=== PATIENT | male | born 1960 | race Caucasian/White ===

== ENCOUNTER 2016-07-15 11:51 | Emergency (ER) | payer OTHER ==
[2016-07-15] MEDS ORDERED: Lidocaine 2% VISCOUS* 15 ML UDC ONE (13:22)
--- NOTE | 2016-07-15 14:06 | UC ---
Francy Addison Salem, scribed for Hector Ferguson MD on 07/15/16 at 1312 . Complaint Male HPI - HPI Summary HPI Summary: In Room note: Patient is a 56 y/o male who complains of sharp pain at the penile meatus lasting 1-2 seconds and reoccurring every 30 seconds beginning at 9pm last night. He states he ate honey and had some abd discomfort. The pain started right after that. He went to sleep and slept the whole night, and when we woke up this morning the pain was gone. 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 Pt denies dysuria or discharge from the penis, but states he has urgency, in the sense that he has to go more frequently. His past medical hx is negative for STDs, kidney stones, or UTIs, according to the pt. note: VSS, afebrile, pulse ox: 100%, 5/10 penis discomfort. Hx of hernia on the left. Nurses note: Here w/ sharp intermittent pain in penis and urinary frequency since yesterday night. Denies any injury/trauma. Pt states pain started after he ate some honey last night, had abd cramping x1 hr which resolved on its own. Denies any abd pain now. Pain worse when sitting up/walking. Took 3x50mg tramadol throughout the AM w/ no pain relief, also took ibuprofen/tylenol this AM w/ no pain relief. - History of Current Complaint Chief Complaint: UC Stated Complaint: PERSONAL COMPLAINT Time Seen by Provider: 07/15/16 12:39 Hx Obtained From: Patient Onset/Duration: Gradual Onset, Lasting Hours Timing: Intermittent - 1-2 seconds and reoccurring every 30 seconds. Severity Initially: Moderate Severity Currently: Moderate Location: Penis Character: Sharp Aggravating Factor(s): Nothing Alleviating Factor(s): Nothing Associated Signs And Symptoms: Positive: Negative. Negative: Dysuria - Allergies/Home Medications Allergies/Adverse Reactions: Allergies Allergy/AdvReac Type Severity Reaction Status Date / Time No Known Allergies Allergy Verified 07/15/16 12:42 Home Medications: Home Medications traMADol TAB* [Ultram*] 50 mg PO Q6HR PRN 07/15/16 [History Confirmed 07/15/16] PMH/Surg Hx/FS Hx/Imm Hx Previously Healthy: Yes - Surgical History Surgical History: Yes Surgery Procedure, Year, and Place: Herniax2. RIGHT testicle - Family History Known Family History: Positive: None, Unknown - Social History Alcohol Use: None Substance Use Type: None Smoking Status (MU): Smoker, Current Status Unknown Type: Smokeless Tobacco - Immunization History Most Recent Influenza Vaccination: None Most Recent Tetanus Shot: UNK Most Recent Pneumonia Vaccination: UNK Review of Systems Constitutional: Negative Genitourinary: Frequency, Other - Sharp pain at the penile meatus. No dysuria or discharge from the penis. All Other Systems Reviewed And Are Negative: Yes Physical Exam Triage Information Reviewed: Yes Appearance: Well-Appearing, No Pain Distress, Well-Nourished Vital Signs: Initial Vital Signs Temp 97.9 F 07/15/16 12:44 Pulse 73 07/15/16 12:44 Resp 18 07/15/16 12:44 BP 134/83 07/15/16 12:44 Pulse Ox 100 07/15/16 12:44 Vital Signs Reviewed: Yes ENT: Positive: Hearing grossly normal, Pharynx normal, TMs normal. Negative: Muffled/hoarse voice Neck: Positive: Supple, Nontender, No Lymphadenopathy Respiratory: Positive: Chest non-tender, Lungs clear, Normal breath sounds, No respiratory distress Cardiovascular: Positive: RRR, No Murmur Abdomen Description: Positive: Nontender, No Organomegaly, Soft Bowel Sounds: Positive: Present Musculoskeletal: Positive: Strength Intact, Other: - IRV[place]. Neurological: Positive: Alert Psychological: Positive: Age Appropriate Behavior Skin Exam: Other - EXAMINATION OF GENITALIA: NML MALE GENITALIA WITH EVIDENCE OF SLIGHT BULGE IN LEFT INGUINAL REGION THAT IS RESIDUAL AFTER A PREVIOUSLY RECONSTRUCTED HERNIA. SLIGHT TENDERNESS AT BULGE. THERE IS NO CURRENT HERNIA. TESTICLES ARE NON-TENDER. THERE IS NO SWELLING OR ERYTHEMA. EXAMINATION OF PENIS SHOWS A NORMAL PENIS WITH NO OBVIOUS INJURY OR REDNESS AT PENILE MEATUS. THERE IS NO ADENOPATHY. Procedures - Procedure Summary Procedure Summary: Procedure: Viscous lidocaine placed with a Q-tip at the urethral meatus and the distal urethral shaft. Pt reports decreased pain and increased comfort. Diagnostics - Laboratory Diagnostic Studies Completed/Ordered: Pts urine sent to test for gonorrhea and chlamydia. Re-Evaluation - Re-Evaluation First Eval Re-Evaluation Time: 13:54 Change: Improved Comment: Pt feels considerably improved. Complaint Male Course/Dx - Course Course Of Treatment: The patient apparently has intermittent pain on the surface skin of the penile meatus. He denies passing a kidney stone or any abd trauma. His urine analysis shows no blood and no sign of infection. I discussed with him how to try to deal with the pain and the possibility that this is a subclinical infection. I will start the pt on 100mg of Doxycycline twice a day and Pyridium to numb his urine as well as viscous lidocaine to use at urethral meatus for discomfort. Pt will follow up in 36 hours if he is not improved. Differential diagnosis: localized irritation, inflammation of the urethral meatus vs. gonococcal or non-gonococcal urethritis vs chlamydia. - Differential Dx/Diagnosis Provider Diagnoses: Presumed: Gonococcal urethritis. Discharge - Discharge Plan Condition: Stable Disposition: HOME Prescriptions: DOXYcycline CAP(*) [DOXYcycline 100MG CAP(*)] 100 mg PO BID #14 cap Lidocaine 2% VISCOUS* 5 ml MT Q4HR #1 btl MDD 5 times a day Phenazopyridine TAB* [Pyridium TAB*] 200 mdi PO TID #6 tab Patient Education Materials: Nonspecific Urethritis in Men (ED) Additional Instructions: WE DISCUSSED: 1. YOU HAVE A LOCALIZED IRRITATION TO THE END OF YOUR PENIS. 2. THIS COULD BE AN INFECTION INSIDE THE PENILE TUBE CALLED URETHRITIS. THIS IS POSSIBLY NOT CAUSED BY A BACTERIA OR CAN COME FROM BACTERIA MOVING INTO THE URETHRAL TUBE. THIS COULD ALSO BE JUST A SKIN IRRITATION TO THE TUBE OF THE PENIS. 3. TAKE YOUR ANTIBIOTIC AND URINE NUMBING MEDICINE. 4. PUT ANTIBIOTIC OINTMENT AROUND THE HEAD OF THE PENIS AND DON'T LET IT RUB. 5. USE THE VISCOUS LIDOCAINE I SHOWED YOU FOR COMFORT. 6. RE CHECK IN 36 HOURS IF YOU ARE NOT IMPROVING. 7. I HAVE SENT YOUR URINE FOR FURTHER TESTING. 8. RE CHECK AT ANY TIME FOR INCREASED PAIN OR TEMPERATURE. The documentation as recorded by the Francy john Salem accurately reflects the service I personally performed and the decisions made by me, Hector Ferguson MD.
== END 2016-07-15 14:18 | disposition home or self-care (01) ==
LOC: UCEAST 11:51
DX: A54.01 Gonococcal cystitis and urethritis, unspecified (principal); Z72.0 Tobacco use
CPT/HCPCS: 81003; 87491; 87591; 99202; G0463

== ENCOUNTER 2022-03-14 09:13 | Inpatient (IN) ==
[2022-03-14] MEDS ORDERED: Al Hydrox/Mg Hydrox/Simet LIQ 30 ML UDC PO PRN (13:19)
[2022-03-14 13:54] LABS: ABS Basophils 0.1 10^3/ul (0-0.2); ABS Eosinophils 0.1 10^3/ul (0-0.6); ABS Lymphocytes 1.2 10^3/ul (1.0-4.8); ABS Monocytes 0.6 10^3/ul (0-0.8); ABS Neutrophils 5.3 10^3/ul (1.5-7.7); Eosinophil % 1.2 %; Hematocrit 42 % (42-52); Hemoglobin 14.3 g/dL (14.0-18.0); Lymphocyte % 16.1 %; Mean Corpuscular HGB Conc 34 g/dL (31-36); Mean Corpuscular Hemoglobin 31 pg (27-31); Mean Corpuscular Volume 89 fL (80-94); Mean Platelet Volume 7.3 fL (7.4-10.4); Nucleated Red Blood Cells % 0.1; Platelet Count 323 10^3/uL (150-450); Red Blood Count 4.67 10^6 /uL (4.18-5.48); Red Cell Distribution Width 14 % (10-15); White Blood Count 7.2 10^3/uL (3.5-10.8)
[2022-03-14 14:55] LABS: ALT 18 U/L (7-52); AST 16 U/L (13-39); Acetaminophen < 15 mcg/mL; Albumin/Globulin Ratio 1.7 (1-3); Alcohol, S < 13 mg/dL (<13); Alkaline Phosphatase 50 U/L (35-149); Anion Gap 7 mmol/L (2-11); Blood Urea Nitrogen 13 mg/dL (6-24); CO2 Carbon Dioxide 29 mmol/L (22-32); Calcium 9.7 mg/dL (8.6-10.3); Chloride 104 mmol/L (101-111); Globulin 2.3 g/dL (2-4); Glucose 88 mg/dL (70-100); Potassium 4.2 mmol/L (3.5-5.0); Salicylate < 2.50 mg/dL (<30); Sodium 140 mmol/L (135-145); Total Protein 6.3 g/dL (6.4-8.9); eGFR CKD-EPI 101.6 (>60)
[2022-03-15 09:23] LABS: HDL Cholesterol 43.4 mg/dL
[2022-03-18] MEDS: Albuterol HFA INHALER 8 gm MDI INH PRN ×2 (15:58→18:04)
[2022-03-19] MEDS: Albuterol HFA INHALER 8 gm MDI INH PRN ×3 (12:45→18:48)
[2022-03-20] MEDS: Albuterol HFA INHALER 8 gm MDI INH PRN ×3 (09:50→20:13)
[2022-03-20 15:38] LABS: CRP High Sensitivity 1.69 mg/L (<2.00)
[2022-03-21] MEDS: Albuterol HFA INHALER 8 gm MDI INH PRN (07:30)
[2022-03-21 09:52] VITALS: BP 159/79
[2022-03-22] MEDS ORDERED: Cholecalciferol (VIT D3) 1,000 unit TAB PO SCH (09:00)
== END 2022-03-21 13:18 | disposition home or self-care (01) | DRG 755 ==
LOC: ED 09:13 → EDHOLD 13:19 → BSU 16:52
PROVIDERS: ADMIT Psychiatry & Neurology Psychiatry; ATTEND Psychiatry & Neurology Psychiatry